=== PATIENT | female | born 1970 | race Caucasian/White ===

== ENCOUNTER → 2021-11-17 15:45 | Outpatient (CLI) | payer BC, SELFPAY ==
--- NOTE | ~2021-11-17 | US_ITS ---
EXAMINATION: US pelvic complete w TV DATE: 11/17/2021 16:16 INDICATION: Abnormal uterine vaginal bleeding. TECHNIQUE: Multiple transabdominal and transvaginal sonographic images of the pelvis were obtained. COMPARISON: Pelvis MRI 12/30/2018 FINDINGS: TRANSABDOMINAL ULTRASOUND: The uterus measures 7.9 x 4.7 x 5.4 cm. There is trace free fluid in the pelvis. TRANSVAGINAL ULTRASOUND: The endometrial complex measures 10 mm in thickness. There is a 1.7 cm hypoechoic intramural fibroid. There are nabothian cysts in the cervix. The right ovary measures 2.3 x 2.5 x 2.7 cm. The left ovary measures 3.8 x 3.2 x 3.0 cm. There is normal vascular flow in the ovaries. IMPRESSION: 1. Uterine fibroid measuring 1.7 cm. Reviewed, dictated and finalized at location B. [employer]
== END ==
PROVIDERS: Visit Provider Obstetrics & Gynecology
DX: N93.9 Abnormal uterine and vaginal bleeding, unspecified (principal); D25.9 Leiomyoma of uterus, unspecified
CPT/HCPCS: 76830; 76856